=== PATIENT | female | born 1960 | race Caucasian/White ===

== ENCOUNTER 2016-08-21 10:01 | Emergency (ER) | payer BC ==
[2016-08-21] MEDS ORDERED: ONDANSETRON 4 MG VIAL ONE (11:36)
[2016-08-21] MEDS ORDERED: KETOROLAC 30 MG/ML VIAL ONE (11:36)
[2016-08-21] MEDS ORDERED: SODIUM CHLORIDE 0.9% 1,000 ML ONE ×2 (11:37→13:32)
== END 2016-08-21 15:04 | disposition home or self-care (01) ==
LOC: ER 10:01
CPT/HCPCS: 36415; 74176; 80053; 81001; 82550; 85025; 87088; 96361; 96374; 96375